=== PATIENT | male | born 1995 | race Two or more races ===

== ENCOUNTER 2023-03-21 01:11 | Inpatient (IN) | payer MEDICAID, OTHER ==
[~2023-03-21] VITALS: Ht 172.7 cm; Wt 80.7 kg
[2023-03-21 02:00] VITALS: PULSE 110
[2023-03-21 02:28] LABS: Albumin 4.4 g/dL (3.4-5.0); BUN/Creatinine Ratio 10.6 (10.0-20.0); Calcium 9.4 mg/dL (8.5-10.1); Potassium 3.7 mmol/L (3.5-5.1)
[2023-03-21 02:30] LABS: Bilirubin, Total 0.7 mg/dL (0.2-1.0); Total Protein 8.2 g/dL (6.4-8.2)
[2023-03-21 02:44] LABS: Basophils # (auto) 0 10 ^3/uL (0-0.2); Basophils % (auto) 0.2 % (0.0-2.0); Eosinophils # (auto) 0 10 ^3/uL (0-0.8); Eosinophils % (auto) 0.2 % (0.0-7.0); Hematocrit 43.1 % (41.0-53.0); Hemoglobin 14.8 g/dL (13.5-17.5); Lymphocytes # (auto) 1.1 10 ^3/uL (0.4-5.4); Lymphocytes % (auto) 5.8 % (10.0-50.0); Mean Corpuscular Hemoglobin 31.5 pg (28.0-32.0); Mean Corpuscular Hgb Conc. 34.3 g/dL (32.0-36.0); Monocytes % (auto) 5.3 % (0.0-12.0); Neutrophils # (auto) 17.3 10 ^3/uL (1.6-8.6); Neutrophils % (auto) 88.5 % (37.0-80.0); Red Blood Cells 4.69 10^6/uL (4.5-5.90); Red Cell Distribution Width 12.7 % (11.8-14.3); White Blood Cell 19.5 10^3/uL (4.4-10.8)
[2023-03-21] MEDS ORDERED: LORazepam 2MG/ML-1ML VIAL IV PRN (02:45)
[2023-03-21] MEDS ORDERED: SODIUM CHLORIDE 0.9% 2,250 ML IV ONE (02:45)
[2023-03-21 03:21] LABS: INR 1.14 (0.9-1.15); Partial Thromboplastin Time 26.9 SEC (24.5-34.5)
[2023-03-21 03:45] LABS: Lactic Acid w/Reflex 2.6 mmol/L (0.4-2.0)
[2023-03-21] MEDS: VANCOMYCIN 1GM/250ML 250 ML IV ONE ×2 (03:50→06:25)
[2023-03-21] MEDS: cefTRIAXone 1GM/50ML D5W 50 ML IV SCH (03:50)
[2023-03-21] MEDS ORDERED: ONDANSETRON HCL 4 MG/2 ML VIAL IV ONE (04:00)
[2023-03-21] MEDS: ACETAMINOPHEN 325 MG TAB PO PRN ×2 (04:33→20:34)
[2023-03-21 07:06] LABS: Urine Bacteria NONE SEEN /hpf (None Seen); Urine Blood Negative /uL (Negative); Urine Hyaline Cast FEW /lpf (0 - 2); Urine Mucus FEW (None Seen); Urine Specific Gravity 1.018 (1.001-1.035); Urine WBC 2 /hpf (0 - 3)
[2023-03-21 07:35] VITALS: PULSE 79; RESP 22; O2SAT 100
[2023-03-21 08:05] LABS: Amphetamine Screen, Urine POSITIVE (NEGATIVE); Cannabinoid Screen, Urine POSITIVE (NEGATIVE)
[2023-03-21 08:13] LABS: Barbiturate Scree,Urine NEGATIVE (NEGATIVE); Benzodiazephine Screen, Urine NEGATIVE (NEGATIVE); Cocaine Screen, Urine NEGATIVE (NEGATIVE); Opiate Scree,Urine NEGATIVE (NEGATIVE); Phencyclidine Screen, Urine NEGATIVE (NEGATIVE)
[2023-03-21] MEDS ORDERED: VANCOMYCIN PER PHARMACY 0 MG IV SCH (08:45)
[2023-03-21] MEDS: VANCOMYCIN 1GM/250ML 250 ML IV SCH ×2 (14:00→22:38)
[2023-03-21 19:30] VITALS: PULSE 100; RESP 21; O2SAT 95
[2023-03-21] MEDS ORDERED: DOCUSATE SOD 100 MG CAP PO PRN (21:00)
[2023-03-21] MEDS ORDERED: MORPHINE SULFATE INJ 2 MG/ml SYRG IV PRN (21:00)
[2023-03-21] MEDS ORDERED: NITROGLYCERIN 0.4 MG SL TAB SL PRN (21:00)
[2023-03-21] MEDS ORDERED: ONDANSETRON HCL 4 MG/2 ML VIAL IV PRN (21:00)
[2023-03-21] MEDS: SODIUM CHLOR 0.9% PF (SALINE LOCK) 10ML VIAL/SYR IV SCH (22:37)
[2023-03-22] MEDS: SODIUM CHLOR 0.9% PF (SALINE LOCK) 10ML VIAL/SYR IV SCH ×3 (06:20→22:38)
[2023-03-22 06:24] LABS: Basophils # (auto) 0 10 ^3/uL (0-0.2); Basophils % (auto) 0.2 % (0.0-2.0); Eosinophils # (auto) 0 10 ^3/uL (0-0.8); Eosinophils % (auto) 0.5 % (0.0-7.0); Hematocrit 37.5 % (41.0-53.0); Hemoglobin 12.9 g/dL (13.5-17.5); Lymphocytes # (auto) 1.7 10 ^3/uL (0.4-5.4); Mean Corpuscular Hemoglobin 31.7 pg (28.0-32.0); Mean Corpuscular Hgb Conc. 34.5 g/dL (32.0-36.0); Mean Corpuscular Volume 91.6 fL (80.0-100.0); Monocytes # (auto) 1.2 10 ^3/uL (0-1.3); Monocytes % (auto) 12.5 % (0.0-12.0); Neutrophils # (auto) 6.9 10 ^3/uL (1.6-8.6); Neutrophils % (auto) 69.8 % (37.0-80.0); Nucleated Red Blood Cells % 0.1 %; Red Blood Cells 4.09 10^6/uL (4.5-5.90); Red Cell Distribution Width 12.4 % (11.8-14.3); White Blood Cell 9.8 10^3/uL (4.4-10.8)
[2023-03-22 06:48] LABS: Potassium 3.7 mmol/L (3.5-5.1)
[2023-03-22 06:56] LABS: Albumin 3.5 g/dL (3.4-5.0); BUN/Creatinine Ratio 10.2 (10.0-20.0); Calcium 8.2 mg/dL (8.5-10.1); Total Protein 6.6 g/dL (6.4-8.2)
[2023-03-22 08:00] VITALS: PULSE 118; RESP 17; O2SAT 97
[2023-03-22] MEDS: cefTRIAXone 1GM/50ML D5W 50 ML IV SCH (09:28)
[2023-03-22 19:40] VITALS: PULSE 112; RESP 21; O2SAT 97
[2023-03-22 21:44] VITALS: O2SAT 95
[2023-03-22] MEDS: VANCOMYCIN 1GM/250ML 250 ML IV SCH (22:39)
[2023-03-22 23:35] VITALS: BP 118/72; PULSE 102; RESP 18; TEMP 98; O2SAT 95
[2023-03-23] VITALS (7 sets, daily range): BP systolic 96–120; BP diastolic 60–85; PULSE 70–94; RESP 14–20; TEMP 98–98.4; O2SAT 95–100
[2023-03-23] MEDS: ACETAMINOPHEN 325 MG TAB PO PRN ×3 (01:33→22:38)
[2023-03-23] MEDS: SODIUM CHLOR 0.9% PF (SALINE LOCK) 10ML VIAL/SYR IV SCH ×3 (06:35→22:39)
[2023-03-23] MEDS: cefTRIAXone 1GM/50ML D5W 50 ML IV SCH (08:31)
[2023-03-23] MEDS: VANCOMYCIN 1GM/250ML 250 ML IV SCH ×3 (10:00→22:39)
[2023-03-23] MEDS ORDERED: VANCOMYCIN 1GM/250ML 250 ML IV SCH (10:30)
[2023-03-24] VITALS (7 sets, daily range): BP systolic 98–127; BP diastolic 55–73; PULSE 79–102; RESP 15–20; TEMP 98–98.9; O2SAT 96–98
[2023-03-24] MEDS: SODIUM CHLOR 0.9% PF (SALINE LOCK) 10ML VIAL/SYR IV SCH ×3 (06:00→21:20)
[2023-03-24] MEDS: cefTRIAXone 1GM/50ML D5W 50 ML IV SCH (09:21)
[2023-03-24] MEDS: VANCOMYCIN 1GM/250ML 250 ML IV SCH ×2 (11:26→20:12)
[2023-03-24] MEDS: ACETAMINOPHEN 325 MG TAB PO PRN (21:20)
[2023-03-25 04:59] VITALS: BP 125/69; PULSE 89; RESP 20; TEMP 98.3; O2SAT 98
[2023-03-25] MEDS: SODIUM CHLOR 0.9% PF (SALINE LOCK) 10ML VIAL/SYR IV SCH ×2 (05:56→14:19)
[2023-03-25] MEDS: VANCOMYCIN 1GM/250ML 250 ML IV SCH (05:56)
[2023-03-25] MEDS: ACETAMINOPHEN 325 MG TAB PO PRN (06:56)
[2023-03-25 08:00] VITALS: PULSE 53; PULSE 99; RESP 18
[2023-03-25 09:17] VITALS: BP 110/69; PULSE 53; RESP 15; TEMP 98.2; O2SAT 98
[2023-03-25] MEDS: cefTRIAXone 1GM/50ML D5W 50 ML IV SCH (09:17)
[2023-03-25 12:46] VITALS: BP 100/62; PULSE 80; RESP 18; TEMP 98; O2SAT 99
[2023-03-25 13:13] VITALS: BP 100/62; PULSE 80; RESP 15; TEMP 98; O2SAT 99
[2023-03-25 15:14] LABS: Basophils # (auto) 0 10 ^3/uL (0-0.2); Basophils % (auto) 0.5 % (0.0-2.0); Eosinophils # (auto) 0.3 10 ^3/uL (0-0.8); Hematocrit 38.5 % (41.0-53.0); Hemoglobin 13.5 g/dL (13.5-17.5); Lymphocytes # (auto) 1.7 10 ^3/uL (0.4-5.4); Lymphocytes % (auto) 19.4 % (10.0-50.0); Mean Corpuscular Hemoglobin 31.8 pg (28.0-32.0); Mean Corpuscular Hgb Conc. 35.2 g/dL (32.0-36.0); Mean Corpuscular Volume 90.5 fL (80.0-100.0); Monocytes # (auto) 0.8 10 ^3/uL (0-1.3); Monocytes % (auto) 9.4 % (0.0-12.0); Neutrophils # (auto) 5.8 10 ^3/uL (1.6-8.6); Neutrophils % (auto) 67.7 % (37.0-80.0); Red Blood Cells 4.26 10^6/uL (4.5-5.90); Red Cell Distribution Width 12.6 % (11.8-14.3); White Blood Cell 8.6 10^3/uL (4.4-10.8)
[2023-03-25 15:29] LABS: BUN/Creatinine Ratio 8.6 (10.0-20.0); Potassium 4.2 mmol/L (3.5-5.1)
[2023-03-25 16:47] VITALS: BP 112/67; PULSE 85; RESP 14; TEMP 98; O2SAT 97
[2023-03-25] MEDS ORDERED: VANCOMYCIN 1GM/250ML 250 ML IV SCH (17:00)
== END 2023-03-25 17:08 | disposition home or self-care (01) | DRG 52 ==
LOC: ER 01:11 → TELE 21:04 → TELE-WESTW 03-22 21:22
PROVIDERS: ADMIT Internal Medicine; ATTEND Internal Medicine
DX: G93.41 Metabolic encephalopathy (principal); B96.89 Other specified bacterial agents as the cause of diseases classified elsewhere; Z87.820 Personal history of traumatic brain injury; Z98.890 Other specified postprocedural states
CPT/HCPCS: 36415; 70450; 71250; 72125; 73020; 73080; 74176; 80048; 80053; 80202; 80307; 80320; 81001; 82962; 83605; 85025; 85610; 85730; 86850; 86900; 86901; 87040; 87077; 87186; 96361; 96365; 96375; 99291; G0378; J0696; J2405

== ENCOUNTER 2023-06-20 22:15 | Emergency (ER) | payer SELFPAY ==
[~2023-06-20] VITALS: Ht 180.3 cm; Wt 59.9 kg
[2023-06-20 22:29] VITALS: BP 129/79; PULSE 91; RESP 18; TEMP 98.7; O2SAT 97
== END 2023-06-21 02:13 | disposition home or self-care (01) ==
LOC: EDBD 22:15 → ER 22:15
DX: S00.83XA Contusion of other part of head, initial encounter (principal); G93.89 Other specified disorders of brain; X58.XXXA Exposure to other specified factors, initial encounter; Y93.89 Activity, other specified; Y92.89 Other specified places as the place of occurrence of the external cause; Y99.8 Other external cause status
CPT/HCPCS: 70450; 70486